=== PATIENT | male | born 1970 | race African-American/Black ===

== ENCOUNTER 2024-09-21 08:49 | Emergency (ER) | payer SELFPAY ==
[~2024-09-21] VITALS: Ht 175.3 cm; Wt 171.0 kg
[2024-09-21] MEDS ORDERED: AMOX500T3 PO (09:58)
[2024-09-21] MEDS ORDERED: ACE3T PO (09:58)
[2024-09-21] MEDS ORDERED: IBUP-1454 PO (09:58)
--- NOTE | 2024-09-21 09:59 | ED.PDOC ---
Eye-HPI HPI Comments 53-year-old male with no MHx presents with a chief complaint of atraumatic tooth pain located to the left lower quadrant x 7 days. Patient reports symptoms have gradually been worsening throughout the last seven days. Pain is rated as throbbing. Initially was taking [id number] Tylenol with some improvement Pain is currently rated as moderate to severe Symptoms are aggravated with the eating Last dental appointment were month ago Chief Complaint: Tooth Pain Time Seen by MD: 08:55 Reviewed Notes: Nurses Notes, Medications, Allergies Allergies: Coded Allergies: NO KNOWN ALLERGIES (Unverified , 09/21/24) Home Meds Active Scripts Ibuprofen (Ibuprofen) 600 Mg Tab, 1 TAB PO TID for 10 Days, #30 TAB 0 Refills Prov:KALEB FIELD NP 09/21/24 Amoxicillin Trihydrate (Amoxicillin) 500 Mg Tab, 1 TAB PO BID for 7 Days, #14 TAB 0 Refills Prov:KALEB FIELD NP 09/21/24 Acetaminophen W/ Codeine (Tylenol W/Cod #3) 1 Tab Tb, 1 TAB PO QHSP PRN for 4 Days, #4 TAB 0 Refills Prov:KALEB FIELD NP 09/21/24 Information Source: Patient Mode of Arrival: Ambulatory Past Medical History PAST MEDICAL HISTORY: Denies Surgical History: Denies all surgeries Family History Family History: Reviewed,noncontributory to illness Social History Smoker: Non-Smoker Alcohol: Denies ETOH Use Drugs: Denies Drug Use All Other Systems: Reviewed and Negative (PER HPI) Physical Exam General Appearance: No Apparent Distress, Normal HEENT: Normal ENT Inspection, Pharynx Normal, TMs Normal, Other (Tooth 37 to the left lower quadrant: Visible chipped tooth. No discharge. No gingivitis. Moist mucous membranes. Tooth is intact) Neck: Full Range of Motion, Non-Tender, Normal, Normal Inspection Respiratory: Chest Non-Tender, Lungs Clear, No Accessory Muscle Use, No Respiratory Distress, Normal Breath Sounds Cardiovascular: No Edema, No JVD, No Murmur, No Gallop, Normal Peripheral Pulses, Regular Rate/Rhythm Breast Exam: Deferred Gastrointestinal: No Organomegaly, Non Tender, No Pulsatile Mass, Normal Bowel Sounds, Soft Genitalia: Deferred Pelvic: Deferred Rectal: Deferred Extremities: No calf tenderness, Normal capillary refill, Normal inspection, Normal range of motion, Non-tender, No pedal edema Musculoskeletal : Apperance: Normal Neurologic: Alert, flanging operator II-XII nml as Tested, No Motor Deficits, Normal Affect, Normal Mood, No Sensory Deficits Cerebellar Function: Normal Reflexes: Normal Skin: Dry, Normal Color, Warm Lymphatic: No Adenopathy Was a procedure done? Was a procedure done?: No EENT DIFF Eye: Other X-Ray, Labs, Meds, VS Vital Signs Date Time Temp Pulse Resp B/P (MAP) Pulse Ox O2 Delivery O2 Flow Rate FiO2 09/21/24 10:00 98.3 78 19 152/72 (98) 96 98.3 09/21/24 10:00 94 19 95 Room Air 09/21/24 08:51 98.3 92 16 143/79 97 98.3 X-Ray, Labs, Meds, VS Comment Patient not immunosuppressed. No evidence of tooth fracture, avulsion, or bleeding socket. No e/o retropharangeal abscess, peritonsillar abscess, Ludwigs angina, periap ical abscess. No e/o gingival hyperplasia or concern for drug reaction. Rx Medications for pain Defer ABX for dental pain alone with no evidence of infection. Disposition: Discharge home. Discussed return precautions for odontogenic infections and other dental pain emergencies. Will provide dental clinic list. On reevaluation, patient had symptomatic improvement. Patient is stable for discharge at this time. External notes reviewed. Test results and diagnostic imaging interpreted. All diagnostic findings, discharge care, education and instructions provided Follow-up with PCP in 2 to 3 days Patient verbalized understanding and agreed to treatment plan Vital signs stable, afebrile, no acute distress noted Patient ambulatory with strong steady gait Advised to return precautions for any new or worsening symptoms, return to ER immediately for re-evaluation Patient is aware that the purpose of this visit was for an acute medical emergency requiring emergent stabilization. Chronic conditions, including malignancies have not been ruled out. Patient is instructed to follow up with PCP as directed and discharge instructions for continued care and workup. If unable to arrange follow-up, patient is to return to the emergency department for reassessment. Patient (parent or legal guardian if applicable) was given verbal and written discharge instructions and acknowledges understanding. Time of 1ST Reevaluation: 09:54 Reevaluation 1ST: Improved Patient Education/Counseling: Diagnosis, Treatment Family Education/Counseling: Diagnosis, Treatment SEPSIS Sepsis Screen Date sepsis recognized/suspect: Sep 21, 2024 Time Sepsis recognized/suspect: 0853 Recent Procedure: No On Antibiotic Therapy: No Respiratory Rate >20: No Heart Rate >90: No Temp<36 C (96.8 F) or >38.3 C: No SBP <90 or MAP <65 mmHG: No New Acute Mental Status Change: No Is the patient on CPAP, BIPAP,: No Vital Signs Date Time Temp Pulse Resp B/P (MAP) Pulse Ox O2 Delivery O2 Flow Rate FiO2 09/21/24 10:00 98.3 78 19 152/72 (98) 96 98.3 09/21/24 10:00 94 19 95 Room Air 09/21/24 08:51 98.3 92 16 143/79 97 98.3 Departure 1 Departure Time of Disposition: 09:59 Impression: Primary Impression: Tooth pain Disposition: HOME / SELF CARE / HOMELESS Condition: Fair Additional Instructions: Discharge Note: Continue on your medications. Do not drive when taking narcotics. Drink plenty of fluids. Follow up with your primary Dentist Take your prescriptions as ordered. If your condition becomes worse call and follow up with your primary Dr. for instructions or return to the ER if needed. Thank you for visiting [facility]. e-Prescriptions Ibuprofen (Ibuprofen) 600 Mg Tab 1 TAB PO TID for 10 Days, #30 TAB 0 Refills Prov: KALEB FIELD NP 09/21/24 Amoxicillin Trihydrate (Amoxicillin) 500 Mg Tab 1 TAB PO BID for 7 Days, #14 TAB 0 Refills Prov: KALEB FIELD NP 09/21/24 Acetaminophen W/ Codeine (Tylenol W/Cod #3) 1 Tab Tb 1 TAB PO QHSP PRN for 4 Days, #4 TAB 0 Refills Prov: KALEB FIELD NP 09/21/24 Critical Care Note Critical Care Time?: No Stability Stability form required: No Heart Score Heart Score: Heart Score Response (Comments) Value History N/A 0 EKG N/A 0 Age N/A 0 Risk Factors N/A 0 Troponin N/A 0 Total 0 KALEB FIELD NP Sep 21, 2024 09:59
[2024-09-21 10:00] VITALS: BP 152/72; PULSE 94; RESP 19; TEMP 98.3; O2SAT 95
== END 2024-09-21 10:03 | disposition home or self-care (01) ==
LOC: ER 08:49
DX: K08.89 Other specified disorders of teeth and supporting structures (principal); Z79.1 Long term (current) use of non-steroidal anti-inflammatories (NSAID); Z79.2 Long term (current) use of antibiotics